=== PATIENT | male | born 1990 | race African-American/Black ===

== ENCOUNTER 2020-09-03 16:19 | Emergency (ER) | payer OTHER ==
[~2020-09-03] VITALS: Ht 172.7 cm; Wt 83.6 kg
[2020-09-03 17:08] LABS: BASO % 0.7 % (0.0-1.0); EOS # 0.2 10^3/uL (0.0-0.5); EOS % 3.4 % (0.0-3.0); HEMATOCRIT 46.4 % (42.0-52.0); HEMOGLOBIN 14.6 g/dl (13.5-17.5); LYMPH # 2.2 10^3/uL (1.5-5.0); MEAN CORPUSCULAR HEMOGLOBIN 23.9 pg (27.0-33.0); MEAN CORPUSCULAR HGB CONC 31.5 g/dl (32.0-36.5); MEAN CORPUSCULAR VOLUME 75.8 fl (80.0-96.0); MONO # 0.3 10^3/uL (0.0-0.8); MONO % 7.4 % (2.0-8.0); NEUTROPHILS # 1.6 10^3/uL (1.5-8.5); NEUTROPHILS % 37.3 % (36.0-66.0); PLATELET COUNT, AUTOMATED 197 10^3/uL (150-450); RED BLOOD COUNT 6.12 10^6/uL (4.30-6.10); WHITE BLOOD COUNT 4.4 10^3/uL (4.0-10.0)
[2020-09-03 17:38] LABS: ALBUMIN 4.4 GM/DL (3.2-5.2); ALT/SGPT 30 U/L (12-78); BILIRUBIN,DIRECT 0.3 MG/DL (0.0-0.2); BILIRUBIN,TOTAL 1.9 MG/DL (0.2-1.0); CK-MB VALUE MASS < 1.0 NG/ML (<3.6); CPK CREATINE PHOSPHOKINASE 218 U/L (39-308); LIPASE 104 U/L (73-393); MB/CK RELATIVE INDEX 0.46 (< OR =4); TROPONIN I < 0.02 NG/ML (< 0.10)
[2020-09-03 19:24] LABS: BLOOD UREA NITROGEN 8 MG/DL (7-18); CALCIUM LEVEL 9.6 MG/DL (8.5-10.1); CARBON DIOXIDE LEVEL 27 MEQ/L (21-32); CHLORIDE LEVEL 105 MEQ/L (98-107); CREATININE FOR GFR 1.34 MG/DL (0.70-1.30); GLOMERULAR FILTRATION RATE > 60.0 (>60); GLUCOSE, FASTING 80 MG/DL (70-100); SODIUM LEVEL 138 MEQ/L (136-145)
[2020-09-03] MEDS ORDERED: GI COCKTAIL 50ML BTL(HYOSCYAMINE/MAALOX/LIDOCAINE VISCOUS)(1:3:1) PO ONE (19:30)
--- NOTE | 2020-09-03 20:00 | REP ---
INDICATION: cp. COMPARISON: No comparison chest x-ray. TECHNIQUE: Two views.. FINDINGS: The lungs are well inflated and free of infiltrate. The pleural angles are sharp. The heart size is normal. Pulmonary vasculature is not increased. No significant bony abnormality is seen. EKG monitoring electrodes are seen overlying the chest. IMPRESSION: Negative chest x-ray. <Electronically signed by Gil Dimas > 09/03/201955
[2020-09-03] MEDS ORDERED: OMEP40CA4 PO (21:56)
[2020-09-03 22:17] VITALS: BP 116/71
--- NOTE | 2020-09-03 22:18 | ECGEPIP ---
[facility] - ED Test Date: 2020-09-03 Pat Name: KAN ANTONIO Department: Room: - Gender: Male Circus Roustabout: JEANNE : 1990 Requested By: Moisés Collazo Order Number: [id number] Reading MD: Luis Alberto Will Measurements Intervals [place] Rate: 58 P: 31 AL: 226 QRS: -2 QRSD: 86 T: 4 QT: 358 QTc: 351 Interpretive Statements Sinus bradycardia with 1st degree AV block Comparison tracing not on file Electronically Signed on 09-03-2020 22:18:42 EDT by Luis Alberto Will
== END 2020-09-03 22:32 | disposition home or self-care (01) ==
LOC: M ED 16:19
DX: K21.9 Gastro-esophageal reflux disease without esophagitis (principal); R07.89 Other chest pain; I44.0 Atrioventricular block, first degree

== ENCOUNTER 2020-11-01 08:27 | Emergency (ER) | payer OTHER ==
[~2020-11-01] VITALS: Ht 175.3 cm; Wt 89.0 kg
[~2020-11-01 08:27] MED LIST: OMEP40CA4 PO
[2020-11-01] MEDS ORDERED: KETOROLAC 30 MG/ML 1ML VIAL IV ONE (09:05)
[2020-11-01 09:08] LABS: BASO % 0.6 % (0.0-1.0); EOS # 0.2 10^3/uL (0.0-0.5); EOS % 5.8 % (0.0-3.0); HEMATOCRIT 48.8 % (42.0-52.0); HEMOGLOBIN 15.4 g/dl (13.5-17.5); LYMPH # 1.1 10^3/uL (1.5-5.0); LYMPH % 31.1 % (24.0-44.0); MEAN CORPUSCULAR HEMOGLOBIN 23.8 pg (27.0-33.0); MEAN CORPUSCULAR HGB CONC 31.6 g/dl (32.0-36.5); MEAN CORPUSCULAR VOLUME 75.5 fl (80.0-96.0); MONO # 0.6 10^3/uL (0.0-0.8); MONO % 16.5 % (2.0-8.0); NEUTROPHILS # 1.7 10^3/uL (1.5-8.5); NEUTROPHILS % 45.7 % (36.0-66.0); PLATELET COUNT, AUTOMATED 178 10^3/uL (150-450); RED BLOOD COUNT 6.46 10^6/uL (4.30-6.10); WHITE BLOOD COUNT 3.6 10^3/uL (4.0-10.0)
--- NOTE | 2020-11-01 09:10 | REP ---
INDICATION: CHEST PAIN. COMPARISON: 09/03/2020 TECHNIQUE: Portable FINDINGS: The technique utilized in obtaining the radiograph has magnified the cardiac silhouette and accentuated the interstitial markings. The superior mediastinal structures are midline. The cardiac silhouette is unremarkable in size, shape, and position. The diaphragmatic surfaces of the lungs are regular, and the costophrenic angles are clear. The pulmonary fonseca are clear. The imaged osseous structures are intact. IMPRESSION: There is no acute cardiopulmonary disease. <Electronically signed by Shade Hagan > 11/01/20 0906
[2020-11-01 09:53] LABS: ERYTHROCYTE SEDIMENTATION RATE 2 mm/hr (0-15)
[2020-11-01] MEDS ORDERED: IBUP-1022 PO (11:13)
[2020-11-01 11:15] VITALS: BP 120/71
--- NOTE | 2020-11-02 05:13 | ECGEPIP ---
[facility] - ED Test Date: 2020-11-01 Pat Name: KAN ANTONIO Department: Room: - Gender: Male Zyglo Technician: : 1990 Requested By: Jaimee Navarro Order Number: [id number] Reading MD: Moisés Diaz Measurements Intervals [place] Rate: 67 P: 53 WV: 210 QRS: -4 QRSD: 86 T: 5 QT: 336 QTc: 355 Interpretive Statements Sinus rhythm with 1st degree AV block NONSPECIFIC T WAVE ABNORMALITY(S) SIMILAR TO 09/03/20 Electronically Signed on 11-02-2020 5:13:26 EDT by Moisés Diaz
== END 2020-11-01 12:00 | disposition home or self-care (01) ==
LOC: M ED 08:27
DX: R07.9 Chest pain, unspecified (principal); R05 Cough
CPT/HCPCS: 71045; 80047; 84484; 85025; 85379; 85652; 93005; 93041; 94760; 96374; 99285; J1885

== ENCOUNTER 2021-01-01 12:40 | Inpatient (IN) | payer OTHER ==
[~2021-01-01] VITALS: Ht 175.3 cm; Wt 85.0 kg
[~2021-01-01 12:40] MED LIST changes: +IBUP-1022 PO
--- OUTSIDE RECORDS SUMMARY | 2021-01-01 12:44 | CCD ---
Author Author [facility] Address Unknown Phone Unavailable Support Name Relationship Address Phone [facility] Next Of Kin [place] [address] Unavailable DONYA [place] [address] Re-disclosure Warning The records that you are about to access may contain information from federally-assisted alcohol or drug abuse programs. If such information is present, then the following federally mandated warning applies: This information has been disclosed to you from records protected by federal confidentiality rules (42 CFR part 2). The federal rules prohibit you from making any further disclosure of this information unless further disclosure is expressly permitted by the written consent of the person to whom it pertains or as otherwise permitted by 42 CFR part 2. A general authorization for the release of medical or other information is NOT sufficient for this purpose. The Federal rules restrict any use of the information to criminally investigate or prosecute any alcohol or drug abuse patient.The records that you are about to access may contain highly sensitive health information, the redisclosure of which is protected by Article 27-F of the [facility] Public Health law. If you continue you may have access to information: Regarding HIV / AIDS; Provided by facilities licensed or operated by the [facility] Office of Mental Health; or Provided by the [facility] Office for People With Developmental Disabilities. If such information is present, then the following [facility] mandated warning applies: This information has been disclosed to you from confidential records which are protected by state law. State law prohibits you from making any further disclosure of this information without the specific written consent of the person to whom it pertains, or as otherwise permitted by law. Any unauthorized further disclosure in violation of state law may result in a fine or fci sentence or both. A general authorization for the release of medical or other information is NOT sufficient authorization for further disc losure. Medications No Information Insurance Providers Payer name Policy type / Coverage type Policy ID Covered green party ID Covered green party's relationship to lawler Policy Lawler Plan Information [facility] ACTIVE DUTY [id number] Problems, Conditions, and Diagnoses No Information Surgeries/Procedures No Information Results ID Date Data Source [id number] 11/07/2020 08:59:00 AM EDT [facility] Name Value Range Interpretation Code Description Data Natalia rce(s) Supporting Document(s) SARS coronavirus 2 RNA Detected [facility] This lab was ordered by [facility] [employer] [facility] and reported by [facility]. ID Date Data Source [id number] 07/11/2020 01:47:00 PM EDT [facility] Name Value Range Interpretation Code Description Data Natalia rce(s) Supporting Document(s) SARS coronavirus 2 RNA Not Detected [facility] This lab was ordered by [facility] [employer] [facility] and reported by [facility]. Procedure Social History No Information
--- OUTSIDE RECORDS SUMMARY | 2021-01-01 13:42 | CCD ---
Author Author [facility] Address Unknown Phone Unavailable Support Name Relationship Address Phone [facility] Next Of Kin [place] [address] Unavailable [place] [address] Re-disclosure Warning The records that you are [...] is protected by Article 27-F of the [facility] Public Health law. If you continue you may have access to information: Regarding HIV / AIDS; Provided by facilities licensed or operated by the [facility] Office of Mental Health; or Provided by the [facility] Office for People With Developmental Disabilities. If such information is present, then the following [facility] mandated warning applies: This information has been [...] law may result in a fine or fdc sentence or both. A general authorization for the release of medical or other information is NOT sufficient authorization for further disc losure. Medications No Information Insurance Providers Payer name Policy type / Coverage type Policy ID Covered democrat ID Covered democrat's relationship to lawler Policy Lawler Plan Information [facility] ACTIVE DUTY [id number] Problems, Conditions, and Diagnoses No Information Surgeries/Procedures No Information Results ID Date Data Source [id number] 11/07/2020 08:59:00 AM EDT [facility] Name Value Range Interpretation Code Description Data Natalia rce(s) Supporting Document(s) SARS coronavirus 2 [facility]ed [facility] This lab was ordered by [facility] [employer] [facility] and reported by [facility]. ID Date Data Source [id number] 07/11/2020 01:47:00 PM EDT [facility] Name Value Range Interpretation Code Description Data Natalia rce(s) Supporting Document(s) SARS coronavirus 2 RNA Not [facility]ed [facility] This lab was ordered by [facility] and reported by [facility]. Procedure Social History No Information
[2021-01-01] MEDS ORDERED: diphenhydrAMINE 50MG CAP PO ONE (16:20)
[2021-01-01 17:05] LABS: HEMATOCRIT 48.9 % (42.0-52.0); HEMOGLOBIN 15.5 g/dl (13.5-17.5); MEAN CORPUSCULAR HGB CONC 31.7 g/dl (32.0-36.5); MEAN CORPUSCULAR VOLUME 75.6 fl (80.0-96.0); PLATELET COUNT, AUTOMATED 183 10^3/uL (150-450); RED BLOOD COUNT 6.47 10^6/uL (4.30-6.10); WHITE BLOOD COUNT 5.2 10^3/uL (4.0-10.0)
[2021-01-01 17:28] LABS: ACETAMINOPHEN LEVEL < 2.0 UG/ML (10.0-30.0); ALBUMIN 4.5 GM/DL (3.2-5.2); ALT/SGPT 30 U/L (12-78); BILIRUBIN,DIRECT 0.3 MG/DL (0.0-0.2); BILIRUBIN,TOTAL 1.5 MG/DL (0.2-1.0); BLOOD UREA NITROGEN 11 MG/DL (7-18); CALCIUM LEVEL 10.1 MG/DL (8.5-10.1); CARBON DIOXIDE LEVEL 28 MEQ/L (21-32); CHLORIDE LEVEL 102 MEQ/L (98-107); CREATININE FOR GFR 1.29 MG/DL (0.70-1.30); ETHYL ALCOHOL (ETHANOL) < 0.003 % (0.000-0.010); GLOMERULAR FILTRATION RATE > 60.0 (>60); GLUCOSE, FASTING 98 MG/DL (70-100); POTASSIUM SERUM 3.7 MEQ/L (3.5-5.1); SALICYLATE LEVEL < 1.7 MG/DL (5.0-30.0); SODIUM LEVEL 138 MEQ/L (136-145); TOTAL PROTEIN 8.3 GM/DL (6.4-8.2)
[2021-01-01 20:14] LABS: AMPHETAMINES LEVEL URINE NEGATIVE (NEGATIVE); BARBITURATES URINE NEGATIVE (NEGATIVE); BENZODIAZEPINES URINE NEGATIVE (NEGATIVE); CANNABINOIDS URINE NEGATIVE (NEGATIVE); COCAINE METABOLITE URINE NEGATIVE (NEGATIVE); METHADONE URINE NEGATIVE (NEGATIVE); OPIATES URINE NEGATIVE (NEGATIVE); PHENCYCLIDINE URINE NEGATIVE (NEGATIVE)
[2021-01-01 21:16] LABS: RSV AMPLIFICATION NEGATIVE (NEGATIVE)
[2021-01-01] MEDS ORDERED: HOME MED LIST COMPLETE! XX SCH (22:20)
[2021-01-01] MEDS ORDERED: traZODone 50 MG TAB PO PRN (22:45)
[2021-01-01] MEDS ORDERED: MAALOX 30 ML SUSP *UDC PO PRN (22:45)
[2021-01-01] MEDS ORDERED: LORazepam 1 MG TAB PO PRN (22:45)
[2021-01-01] MEDS ORDERED: ACETAMINOPHEN TAB 650MG DOSE (2X325MG) PO PRN (22:45)
[2021-01-01] MEDS ORDERED: MOM 30ML SUSPENSION UDC PO PRN (22:45)
--- OUTSIDE RECORDS SUMMARY | 2021-01-01 22:54 | CCD ---
Author Author [facility] Address Unknown Phone Unavailable Support Name Relationship Address Phone [facility] Next [place] [address] Unavailable [place] [address] Re-disclosure Warning The records that you are [...] is protected by Article 27-F of the [facility] Public Health law. If you continue you may have access to information: Regarding HIV / AIDS; Provided by facilities licensed or operated by the [facility] Office of Mental Health; or Provided by the [facility] Office for People With Developmental Disabilities. If such information is present, then the following [facility] mandated warning applies: This information has been [...] law may result in a fine or shelter sentence or both. A general authorization for the release of medical or other information is NOT sufficient authorization for further disc losure. Medications No Information Insurance Providers Payer name Policy type / Coverage type Policy ID Covered constitution party ID Covered constitution party's relationship to lawler Policy Lawler Plan Information [facility] ACTIVE DUTY [id number] Problems, Conditions, and Diagnoses No Information Surgeries/Procedures No Information Results ID Date Data Source [id number] 11/07/2020 08:59:00 AM EDT [facility] Name Value Range Interpretation Code Description Data Natalia rce(s) Supporting Document(s) SARS coronavirus [address] [facility] This lab was ordered by [facility] [employer] [facility] and reported by [facility]. ID Date Data Source [id number] 07/11/2020 01:47:00 PM EDT [facility] Name Value Range Interpretation Code Description Data Natalia rce(s) Supporting Document(s) SARS coronavirus 2 RNA Not [facility]ed [facility] This lab was ordered by [facility] and reported by [facility]. Procedure Social History No Information
--- NOTE | 2021-01-02 10:35 | HPEPDOC ---
[facility] Medical History & Physical Date of Admission Jan 01, 2021 Date of Service: Jan 02, 2021 History and Physical Chief complaint: Who presented to the hospital for suicidal ideation History of present illness: Patient is a 30-year-old male with no significant past medical history who presented to the emergency room brought in by EMS for suicidal ideation. Patient was admitted to the inpatient mental health unit under the care of psychiatry. Hospitalist service was consulted for medical screening evaluation. Patient was seen and examined in his room. He denied any headache, nausea, vomiting, chest pain, shortness of breath, palpitations, cough, abdominal pain, constipation, diarrhea, or urinary discomfort. He denies any recent fevers or chills. Reports that his weight and appetite have been fairly consistent. 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 Review of Systems: 10 point review of systems complete, all negative otherwise stated in HPI Physical exam: - Vitals: BP [112/56], HR [60], RR [16], Sat [99%RA], Temp [97.1F] - General: Lying in bed, Speaking in full sentences, AAOx3 - HEENT: NC, AT, PERRLA - CVS: RRR, +S1S2, - Murmurs / rubs / gallops - Lungs: Fair air entry bilaterally, No appreciable wheezing / rales / rhonchi - Abdomen: Soft, Non-distended, Non-tender - Extremities: No lower extremity edema, No calf tenderness - Neuro: No focal motor or sensory deficit - Skin: No visible rashes Labs: See below Imaging: See below EKG: See below Assessment and Plan: Suicidal ideation - Who presented to the hospital with suicidal ideation - Patient was admitted to the inpatient mental health unit under the care of psychiatry - Currently being managed by psychiatry No significant past medical history DVT prophylaxis - Will c/w early ambulation Female machine or machinery mechanic was present throughout the duration of this history and physical examination Thank you for this consultation. Hospitalist service will now sign off; please reconsult as needed Vital Signs Vital Signs Date Time Temp Pulse Resp B/P (MAP) Pulse Ox O2 Delivery O2 Flow Rate FiO2 01/01/21 19:33 97.1 60 16 112/56 (74) 99 Room Air Laboratory Data Labs 24H Laboratory Tests 2 01/01/21 16:38: Nucleated Red Blood Cells % (auto) 0.0, Anion Gap 8, Glomerular Filtration Rate > 60.0, Calcium Level 10.1, Total Bilirubin 1.5H, Direct Bilirubin 0.3H, Aspartate Amino Transf (AST/SGOT) 25, Alanine Aminotransferase (ALT/SGPT) 30, Alkaline Phosphatase 92, Total Protein 8.3H, Albumin 4.5, Albumin/Globulin Ratio 1.2, Thyroid Stimulating Hormone (TSH) 1.780, Salicylates Level < 1.7L, Acetaminophen Level < 2.0L, Ethyl Alcohol Level < 0.003 01/01/21 19:18: Urine Opiates Screen NEGATIVE, Urine Methadone Screen NEGATIVE, Urine Barbiturates Screen NEGATIVE, Urine Phencyclidine Screen NEGATIVE, Urine Amp hetamines Screen NEGATIVE, Urine Benzodiazepines Screen NEGATIVE, Urine Cocaine Metabolite Screen NEGATIVE, Urine Cannabinoids Screen NEGATIVE 01/01/21 20:28: Coronavirus (COVID-19)(PCR) NEGATIVE, Influenza Type A (RT-PCR) NEGATIVE, Influenza Type B (RT-PCR) NEGATIVE, Respiratory Syncytial Virus (PCR) NEGATIVE CBC/BMP Laboratory Tests 01/01/21 16:38 Home Medications No Active Prescriptions or Reported Meds Allergies Coded Allergies: No Known Drug Allergies (Verified Allergy, Unknown, 09/03/20) IRA MIKE MD Jan 02, 2021 10:35
--- NOTE | 2021-01-02 13:43 | MHHPEPDOC ---
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 This is his first psychiatric hospitalization, he has no past psychiatric history, no reports of past suicidal gestures or attempts. No history of drug or alcohol abuse. The patient states that he came to the [place] when he was 25 years old the winning the lottery in the [employer] giving him a chance to come to the [facility] from the [facility]. He states that he enlisted in the [employer] 3 years ago. He reports many incidences of being bullied and racially harassed during his enlistment. In one episode he states that someone said to him that they had a picture of him and he was handed a picture of a gorilla. 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 He also states that during basic training when other people were getting remediation, he did not ask or receive additional help but he was asked if he was able to read or write. This angered him, as he reports that he would not have been able to enlist without being able to read or write. More recently when he was living in the [facility], his Chain of Command learned that he had they forced him to leave the [facility] without housing. He did not have a car, his was then still living in [place] but he was unable to secure housing within two to three days and they demanded that he remove all his belongings from the [facility]. Eventually a friend with a vehicle was able to help him move off post. He reports being counseled many times but states that many of these sessions were because he did not agree with their reporting of the situation. He was deployed for most of 2019, he states that the deployment was supposed to be 3 months, turned into 6 months, turned into 11 months. He reports that other people had deployment of 1 to 2 months. During his appointment his left him. He went to [place] to try to find her, he was able to speak to her but she had left and did not leave any information about her whereabouts. She eventually did send divorce papers to him, he signed them, he states that he is unaware of where the divorce is at this time. Recently his car had mechanical issues, he could not afford the repair rate and a friend was going to help him fix car. When he told his chain of command that a friend was going to fix his car and that he needed to get tools to his friend's chain of command and asked for the number to speak to this person. They spoke but then the chain of command refused to allow the patient to give the keys and tools to the friend. He states that this was very frustrating for him as he said, "Why asked for my friend's phone number if they were going to not let me give the tools to him?" He reports that much of his frustration, stress, depression comes from his chain of command seemingly trying to make him look incompetent. Patient reporting that he will be able to leave the [employer] in July 2021. PER ED REPORT: Pt presented to [facility] today stating "every day is getting worse and does not know what to do." Pt presented to [facility] on this date stating he did not feel safe. W joy asked if pt could CFS, pt did not respond. Pt states he is under a lot of stress with no support at work or at home. Pt is , but states his stopped all communication with him on his last deployment. Pt's initially had communication then would go 2-6 months with no communication. Pt returned home from deployment to find the home they shared vacant. Pt's left no forwarding information, therefore pt has no idea where she is. Pt also states he joined the , being proud. Pt states he has been racially bullied to the point he is no longer interested in being in the . Pt was due for a promotion, has passed all of his testing, and still denied the promotion. Pt has no support other than at work. Pt states once work is over, he returns home and has no friends or local family. The closest family is pt's mother who resides in [place]. Psychiatric Review of Systems Depression (2 or more weeks): depressed mood, anhedonia, insomnia/hypersomnia, feelings of excess/guilt, difficulty concentrating, suicidal thoughts Maria Eugenia (4 or more days of): denies Psychosis: denies PTSD: history of trauma Anxiety: situational anxiety, stressor related anxiety Past Psychiatric History Previous Psychiatric Diagnosis: None Previous Psychiatric Admissions: None Suicide Attempts: None, suicidal ideations Psychiatric Follow-up: [facility] Psychiatric medications: None, and is declining meds Past Medical History Medical Problems No contributory medical conditions Head Injury: No Seizures: No Hospitalizations: No Surgeries: No Family Medical/Psychiatric HX Medical Problems No contributory conditions Psychiatric Disorders: No Addiction: No Suicide Attemps/Completions: No Addiction History denies Social History Childhood: Born in the [facility]. Has 2 Sisters and 1 Brothers, Did well in school Abuse/Trauma: reports no child abuse, but reports harassment in the [employer] Current Living Situation: Lives alone off post Education: High School Employment: Active Duty Social Support: Limited, reports "none" Legal: None Marital: Still , going through a divorce Mental Status Examination General Appearance: well groomed, appears stated age, hospital scubs/clothing Build: average, other Demeanor: withdrawn, guarded Eye Contact: fair Activity: slowed, anxious Behavior: cooperative Speech: clear, reg/rate,rhythm,volume Mood: depressed Affect: constricted Thought Process: logical/linear Thought Content (Delusions): none reported Thought Content (Other): none reported Thought Content (Aggressive): none reported Perception (Hallucinations): none reported Perception (Other): none reported Cognition (Impairment of): none reported Cognition(Intelligence Est.): average Oriented: Awake, Alert Insight: fair Judgment: Fair Psychosis: Denies Diagnoses Major depressive disorder, single episode, mild Unspecified anxiety disorder Rule out posttraumatic stress disorder A-FIB/CHADSVASC A-FIB History Current/History of A-Fib/PAF?: No Current PO Anticoag Therapy: No Assessment Patient is a 30-year-old, , active duty, male who reports depression, anxiety and suicidal ideations with no planning. He reports a series of stress filled events and numerous episodes of harassment and being bullied in the . Patient reports numerous stressors: 1) car his mechanical problems, 2) sergeant is giving him a hard time about giving him time to take care of the car issues, 3) feels that he is being harassed, 4) depressed over the end of his marriage. Reports that his left him during his deployment and she gave him no recourse and requested a divorce, 5) Limited supports. Patient reports that he was having suicidal ideations 2 weeks ago, but had no planning or intent. He reports no suicidal ideations today, reports depression and anxiety but states that he wants to return to post. Declines medications for depression or anxiety. Patient will be afforded group and individual therapy, medication management if he requests, milieu therapy and safe environment. Patient will be discharged when he is stable and he will follow-up with [facility]. Possible discharge tomorrow. Initial Treatment Plan 1. Patient was admitted on a [9.39] status. 2. Complete history was obtained. 3. With patients permission, family will be contacted and database will be expanded. 4. Patients medication regimen will be reviewed and changed accordingly. 5. Patient will be provided with protected environment. 6. Patient will be treated with individual, group, and milieu therapies. 7. Patient will receive supportive psych-education. 8. Discharge planning will commence immediately. 9. Outpatient follow-up treatment will be strongly recommended. 10. The initial treatment plan will focus initially on: * Depression. * Risk for suicide. ESTIMATED LENGTH OF STAY: 1-3 DAYS. TIME SPENT COUNSELING AND COORDINATING INITIAL CARE: 60 minutes. Tobacco Cessation Screen If Patient is a Smoker Patient is not a smoker N/A-No Antipsychotics Vital Signs Vital Signs Date Time Temp Pulse Resp B/P (MAP) Pulse Ox O2 Delivery O2 Flow Rate FiO2 01/01/21 19:33 97.1 60 16 112/56 (74) 99 Room Air Laboratory Data 24H Labs Laboratory Tests 2 01/01/21 16:38: Nucleated Red Blood Cells % (auto) 0.0, Anion Gap 8, Glomerular Filtration Rate > 60.0, Calcium Level 10.1, Total Bilirubin 1.5H, Direct Bilirubin 0.3H, Aspartate Amino Transf (AST/SGOT) 25, Alanine Aminotransferase (ALT/SGPT) 30, Alkaline Phosphatase 92, Total Protein 8.3H, Albumin 4.5, Albumin/Globulin Ratio 1.2, Thyroid Stimulating Hormone (TSH) 1.780, Salicylates Level < 1.7L, Acetaminophen Level < 2.0L, Ethyl Alcohol Level < 0.003 01/01/21 19:18: Urine Opiates Screen NEGATIVE, Urine Methadone Screen NEGATIVE, Urine Barbiturates Screen NEGATIVE, Urine Phencyclidine Screen NEGATIVE, Urine Amphetamines Screen NEGATIVE, Urine Benzodiazepines Screen NEGATIVE, Urine Cocai ne Metabolite Screen NEGATIVE, Urine Cannabinoids Screen NEGATIVE 01/01/21 20:28: Coronavirus (COVID-19)(PCR) NEGATIVE, Influenza Type A (RT-PCR) NEGATIVE, Influenza Type B (RT-PCR) NEGATIVE, Respiratory Syncytial Virus (PCR) NEGATIVE CBC/BMP Laboratory Tests 01/01/21 16:38 Medications No Active Prescriptions or Reported Meds Allergies Coded Allergies: No Known Drug Allergies (Verified Allergy, Unknown, 09/03/20) MIMI MADDOX NP Jan 02, 2021 11:41
[2021-01-02 17:45] VITALS: BP 130/85
[2021-01-03 06:43] VITALS: BP 112/55
--- NOTE | 2021-01-03 13:44 | MHIPNPDOC ---
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 This is his first psychiatric hospitalization, he has no past psychiatric history, no reports of past suicidal gestures or attempts. No history of drug or alcohol abuse. The patient state s that he came to the [place] when he was 25 years old the winning the lottery in the [facility] giving him a chance to come to the [facility] from the [facility]. He states that he enlisted in the [employer] 3 years ago. He reports many incidences of being bullied and racially harassed during his enlistment. In one episode he states that someone said to him that they had a picture of him and he was handed a picture of a gorilla. 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 He also states that during basic training when other people were getting remediation, he did not ask or receive additional help but he was asked if he was able to read or write. This angered him, as he reports that he would not have been able to enlist without being able to read or write. More recently when he was living in the [facility], his Chain of Command l earned that he had they forced him to leave the [facility] without housing. He did not have a car, his was then still living in [place] but he was unable to secure housing within two to three days and they demanded that he remove all his belongings from the [facility]. Eventually a friend with a vehicle was able to help him move off post. He reports being counseled many times but states that many of these sessions were because he did not agree with their reporting of the situation. He was deployed for most of 2019, he states that the deployment was supposed to be 3 months, turned into 6 months, turned into 11 months. He reports that other people had deployment of 1 to 2 months. During his appointment his left him. He went to [place] to try to find her, he was able to speak to her but she had left and did not leave any information about her whereabouts. She eventually did send divorce papers to him, he signed them, he states that he is unaware of where the divorce is at this time. Recently his car had mechanical issues, he could not afford the repair rate and a friend was going to help him fix car. When he told his chain of command that a friend was going to fix his car and that he needed to get tools to his friend's chain of command and asked for the number to speak to this person. They spoke but then the chain of command refused to allow the patient to give the keys and tools to the friend. He states that this was very frustrating for him as he said, "Why asked for my friend's phone number if they were going to not let me give the tools to him?" He reports that much of his frustration, stress, depression comes from his chain of command seemingly trying to make him look incompetent. Patient reporting that he will be able to leave the [employer] in July 2021. VITAL SIGNS: See below. NEW TEST RESULTS: none CURRENT MEDICATIONS: See below. 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 Speech: Is fluid, conversant, normal rate, tone and volume Language skills are intact Thought processes including: linear and goal oriented Thought content: denies depression and anxiety. Denies suicidal/homicidal ideation, planning or intent. Abstract reasoning, and computation: fair Description of associations: denies, none observed Description of abnormal or psychotic thoughts: denies, none observed. Judgment: fair Insight: fair Orientation: alert and oriented to person, place, time and situation Recent and remote memory: intact Attention span and concentration: good Language: expansive Fund of knowledge: average Mood: Euthymic Mood Affect: reactive DIAGNOSES: Major depressive disorder, single episode, mild Unspecified anxiety disorder Rule out posttraumatic stress disorder ASSESSMENT: Pt. found in his room. Complains of right ankle pain. States pain is from aggravated physical fitness. Patient appears depressed but denies this. He has a very flat affect. Denies suicidality he is isolative and withdrawn to his room. He requested to be discharged today. " My problems will not be any better if I stay for 1 month or stay here for 1 day." Provider feels 1 more day of observation is necessary due to staff report that the patient appears to be depressed. Patient is agreeable to staying until tomorrow. MANAGEMENT PLAN: Continue supportive therapy. Discharge tomorrow. TIME SPENT: 25 minutes. Vital Signs Vital Signs Date Time Temp Pulse Resp B/P (MAP) Pulse Ox O2 Delivery O2 Flow Rate FiO2 01/03/21 06:43 98.8 60 16 112/55 (74) 100 Room Air Current Medications Current Medications Medications (Trade) Dose Ordered Sig/Jose Antonio Route PRN Reason Start Time Stop Time Status Last Admin Dose Admin Acetaminophen (Tylenol Tab) 650 mg Q6HP PRN PO HEADACHE or MILD DISCOMFORT 01/01/21 22:45 Al Hydrox/Mg Hydrox/Simethicone (Mylanta) 30 ml Q4HP PRN PO HEARTBURN/INDIGESTION 01/01/21 22:45 Home Med (Home Med List Complete!) ASDIRECTED XX 01/01/21 22:20 01/01/21 22:19 DC Lorazepam (Ativan) 1 mg BID PRN PO ANXIETY/AGITATION 01/01/21 22:45 Magnesium Hydroxide (Milk Of Magnesia) 30 ml DAILYPRN PRN PO CONSTIPATION 01/01/21 22:45 Trazodone HCl (Desyrel) 50 mg QHSP PRN PO INSOMNIA 01/01/21 22:45 Allergies Coded Allergies: No Known Drug Allergies (Verified Allergy, Unknown, 09/03/20) MIMI MADDOX NP Jan 03, 2021 13:44
[2021-01-03 17:25] VITALS: BP 125/63
[2021-01-03] MEDS ORDERED: diphenhydrAMINE 50MG CAP PO ONE (23:40)
[2021-01-04 06:34] VITALS: BP 134/77
--- NOTE | 2021-01-04 09:55 | MHDSPDOC ---
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 This is his first psychiatric hospitalization, he has no past psychiatric history, no reports of past suicidal gestures or attempts. No history of drug or alcohol abuse. The patient states that he came to the [place] when he was 25 years old the winning the lottery in the [employer] giving him a chance to come to the [facility] from the [facility]. He states that he enlisted in the [employer] 3 years ago. He reports many incidences of being bullied and racially harassed during his enlistment. In one episode he states that someone said to him that they had a picture of him and he was handed a picture of a gorilla. 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 He also states that during basic training when other people were getting remediation, he did not ask or receive additional help but he was asked if he was able to read or write. This angered him, as he reports that he would not have been able to enlist without being able to read or write. More recently when he was living in the [facility], his Chain of Command learned that he had they forced him to leave the [facility] without housing. He did not have a car, his was then still living in [place] but he was unable to secure housing within two to three days and they demanded that he remove all his belongings from the [facility]. Eventually a friend with a vehicle was able to help him move off post. He reports being counseled many times but states that many of these sessions were because he did not agree with their reporting of the situation. He was deployed for most of 2019, he states that the deployment was supposed to be 3 months, turned into 6 months, turned into 11 months. He reports that other people had deployment of 1 to 2 months. During his appointment his left him. He went to [place] to try to find her, he was able to speak to her but she had left and did not leave any information about her whereabouts. She eventually did send divorce papers to him, he signed them, he states that he is unaware of where the divorce is at this time. Recently his car had mechanical issues, he could not afford the repair rate and a friend was going to help him fix car. When he told his chain of command that a friend was going to fix his car and that he needed to get tools to his friend's chain of command and asked for the number to speak to this person. They spoke but then the chain of command refused to allow the patient to give the keys and tools to the friend. He states that this was very frustrating for him as he said, "Why asked for my friend's phone number if they were going to not let me give the tools to him?" He reports that much of his frustration, stress, depression comes from his chain of command seemingly trying to make him look incompetent. Patient reporting that he will be able to leave the [employer] in July 2021. VITAL SIGNS: See below. CONSULTANTS INVOLVED: See Medical H + P by Hospitalist TREATMENT AND PROGRESS ON THE UNIT: Patient was admitted to the [facility] on a 9.39 legal status was afforded the following treatment modalities: 1) Individual Therapy 2) Group Therapy 3) Medication Management 4) Milieu Therapy 5) Safe Environment HOSPITAL COURSE: Patient was admitted to [facility] on a 9.39 legal status. He was admitted for depression, anxiety, suicidal ideations although he reports that he did not have any suicidal ideations upon initial interview. Patient declined al l medications. He was very isolative and withdrawn to his room, patient demonstrated avoidant personality traits, perhaps it was a language barrier. Patient speaks fluent Tunisian has a noticeable accent but this does not make it impossible to understand him. He was encouraged to go to groups but it appears that he has not attended any. His mood, anxiety, and reported suicidal thoughts improved with inpatient admission. Pts symptoms improved with treatment. On day of discharge pt. denied depression, anxiety, insomnia, SI/HI, hallucinations, delusions. Pt was discharged home with follow-up at [facility]. Pt felt safe for discharge. DISCHARGE ASSESSMENT: In today's interview, patient is alert and oriented, pt.s dress is appropriate. Hygiene and grooming is well-kempt. Smiles on approach and is pleasant and engaged in the interview. Denies depression and anxiety. Denies suicidal and homicidal ideation, planning or intent. Denies and is not observed with clovis, psychotic symptoms of delusions, bizarre thinking, obsessions, paranoia, ruminations illogical thoughts, flight of ideas or having poor insight and judgement. Reinforced with patient need to abstain from alcohol and drugs. At discharge patient has normal mentation, declines further hospitalization on a voluntary status and meets criteria for discharge today. Discussed indications of medications, potential benefits and risks, alternatives (including no treatment) and questions were encouraged and answered. Patient encouraged to return to hospital if symptoms worsen or change and encouraged to call unit if he/she/they needs to speak to provider for questions regarding medications or care. 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 Speech: Is slow rate, low tone and volume Language skills are intact Thought processes including: linear and goal oriented Thought content: denies depression and anxiety. Denies suicidal/homicidal ideation, planning or intent. Abstract reasoning, and computation: fair Description of associations: denies, none observed Description of abnormal or psychotic thoughts: denies, none observed. Judgment: fair Insight: fair Orientation: alert and oriented to person, place, time and situation Recent and remote memory: intact Attention span and concentration: good Language: expansive Fund of knowledge: average Mood: Euthymic Mood Affect: reactive Suicide Risk Assessment: 1) Does the patient wish to be ? No 2) Since your admission, have you had any actual thought of killing yourself? No 3) Since your admission, have you been thinking about how you might do this? No 4) Since your admission, have you had these thoughts and had some intention of acting on them? No 5) Since your admission, have you started to work out or worked out the detail s of how to kill yourself? No 5A) Do you intent to carry out this plan? No and NA 6) Have you ever done anything, started anything, or prepared to do anything with any intent to ? No 6A) How long since your admission did you do any of these? NA MEDICATIONS ON DISCHARGE: See Medication Reconciliation PLAN/FOLLOWUP ARRANGEMENTS: [facility] * Medical Follow Up [facility] * Established With This Provider Yes * Therapist * Date Jan 14, 2021 * Time 11:00 * Address of Clinic or Practice [id number] , [place] [address] * The amount of time spent in the coordination of care for this patient was approximately 25 minutes. ETOH/Disorder Med Rx ETOH/DRUG DISORDER RX: N/A Vital Signs/I&Os Vital Signs Date Time Temp Pulse Resp B/P (MAP) Pulse Ox O2 Delivery O2 Flow Rate FiO2 01/04/21 06:34 98.3 59 12 134/77 (96) 98 Room Air Medications No Active Prescriptions or Reported Meds Allergies Coded Allergies: No Known Drug Allergies (Verified Allergy, Unknown, 09/03/20) MIMI MADDOX [employer] INST[employer]ER Jan 04, 2021 09:55
== END 2021-01-04 13:02 | disposition home or self-care (01) | DRG 885 ==
LOC: M ED 12:40 → M ED INP 22:42 → M PSY 01-02 00:15
PROVIDERS: ADMIT Psychiatry & Neurology Psychiatry; ATTEND Psychiatry & Neurology Psychiatry
DX: F32.0 Major depressive disorder, single episode, mild (principal); R45.851 Suicidal ideations; F41.9 Anxiety disorder, unspecified; Z20.822 Contact with and (suspected) exposure to COVID-19; Z56.5 Uncongenial work environment

== ENCOUNTER 2021-01-08 07:05 | Emergency (ER) | payer OTHER ==
[~2021-01-08] VITALS: Ht 175.3 cm; Wt 87.8 kg
[2021-01-08 07:05] VITALS: BP 135/74
[2021-01-08] MEDS ORDERED: BENA25CA4 PO (07:11)
[2021-01-08] MEDS ORDERED: HYDR1CRE30 TOP (07:11)
[2021-01-08] MEDS ORDERED: hydrOXYzine 10 MG TAB PO STA (09:09)
[2021-01-08] MEDS ORDERED: diphenhydrAMINE 50MG/ML VIAL (J1200) IM ONE (09:10)
[2021-01-08] MEDS ORDERED: VIST25CA PO (10:04)
== END 2021-01-08 10:16 | disposition home or self-care (01) ==
LOC: M ED 07:05
DX: L29.9 Pruritus, unspecified (principal); F32.89 Other specified depressive episodes; Z86.16 Personal history of COVID-19
CPT/HCPCS: 96372; 99282; J1200

== ENCOUNTER 2021-02-13 11:25 | Emergency (ER) | payer OTHER ==
[~2021-02-13] VITALS: Ht 175.3 cm; Wt 83.2 kg
[~2021-02-13 11:25] MED LIST changes: +BENA25CA4 PO; +HYDR1CRE30 TOP; +VIST25CA PO
[2021-02-13] MEDS ORDERED: CETI5TAB2 PO (11:40)
[2021-02-13] MEDS ORDERED: IBUP200C28 PO (11:40)
[2021-02-13] MEDS ORDERED: ONDANSETRON 4MG/2ML VIAL IV ONE (17:45)
--- NOTE | 2021-02-13 18:10 | REPVR ---
PROCEDURE INFORMATION: Exam: CT Head Without Contrast Exam date and time: 02/13/2021 5:54 PM Age: 31 years old Clinical indication: Pain; Headache; Additional info: Persistent headache TECHNIQUE: Imaging protocol: Computed tomography of the head without contrast. Radiation optimization: All CT scans at this facility use at least one of these dose optimization techniques: automated exposure control; mA and/or kV adjustment per patient size (includes targeted exams where dose is matched to clinical indication); or iterative reconstruction. COMPARISON: No relevant prior studies available. FINDINGS: Brain: Normal. No hemorrhage. Unremarkable white matter. No mass effect. Cerebral ventricles: No ventriculomegaly. Paranasal sinuses: Visualized sinuses are unremarkable. No fluid levels. Mastoid air cells: Visualized mastoid air cells are well aerated. Bones/joints: Unremarkable. No acute fracture. Soft tissues: Unremarkable. IMPRESSION: No acute intracranial abnormality. Electronically signed by: Stevenson Guillen On 02/13/2021 18:09:59 PM
[2021-02-13] MEDS ORDERED: NS 1,000 ML IV ONE (18:20)
[2021-02-13 18:23] LABS: BASO % 0.2 % (0.0-1.0); EOS # 0.2 10^3/uL (0.0-0.5); EOS % 4.3 % (0.0-3.0); HEMATOCRIT 47.2 % (42.0-52.0); LYMPH % 45.8 % (24.0-44.0); MEAN CORPUSCULAR HGB CONC 31.8 g/dl (32.0-36.5); MEAN CORPUSCULAR VOLUME 75.4 fl (80.0-96.0); MONO # 0.4 10^3/uL (0.0-0.8); MONO % 9.8 % (2.0-8.0); NEUTROPHILS # 1.7 10^3/uL (1.5-8.5); NEUTROPHILS % 39.7 % (36.0-66.0); PLATELET COUNT, AUTOMATED 187 10^3/uL (150-450); RED BLOOD COUNT 6.26 10^6/uL (4.30-6.10); WHITE BLOOD COUNT 4.4 10^3/uL (4.0-10.0)
[2021-02-13 18:51] LABS: ALBUMIN 4.2 GM/DL (3.2-5.2); ALT/SGPT 31 U/L (12-78); BILIRUBIN,TOTAL 1.1 MG/DL (0.2-1.0); BLOOD UREA NITROGEN 13 MG/DL (7-18); CALCIUM LEVEL 9.4 MG/DL (8.5-10.1); CARBON DIOXIDE LEVEL 27 MEQ/L (21-32); CHLORIDE LEVEL 109 MEQ/L (98-107); CREATININE FOR GFR 1.22 MG/DL (0.70-1.30); GLOMERULAR FILTRATION RATE > 60.0 (>60); GLUCOSE, FASTING 88 MG/DL (70-100); POTASSIUM SERUM 4.2 MEQ/L (3.5-5.1); SODIUM LEVEL 142 MEQ/L (136-145); TOTAL PROTEIN 7.8 GM/DL (6.4-8.2)
[2021-02-13 18:54] LABS: ERYTHROCYTE SEDIMENTATION RATE 1 mm/hr (0-15)
[2021-02-13] MEDS ORDERED: KETOROLAC 30 MG/ML 1ML VIAL IV ONE (19:10)
[2021-02-13] MEDS ORDERED: PROHANCE 279.3MG/ML 15ML VIAL As Ordered ONE (21:36)
[2021-02-13] MEDS ORDERED: PROHANCE 279.3MG/ML 5ML VIAL As Ordered ONE (21:37)
--- NOTE | 2021-02-13 22:22 | REPVR ---
PROCEDURE INFORMATION: Exam: MR Head Without and With Contrast Exam date and time: 02/13/2021 9:30 PM Age: 31 years old Clinical indication: Pain; Visual disturbance; Headache not specified; Additional info: HOLT 6 weeks blurred, double vision TECHNIQUE: Imaging protocol: MR of the head without and with intravenous contrast. Contrast material: PROHANCE; Contrast volume: 16 ml; Contrast route: INTRAVENOUS (IV); COMPARISON: CT Head without contrast 02/13/2021 5:48 PM FINDINGS: Brain: Normal. No acute infarct. No hemorrhage. No significant white matter disease. No edema. Cerebral ventricles: Normal. No ventriculomegaly. Bones/joints: Unremarkable. Paranasal sinuses: Normal as visualized. No acute sinusitis. Mastoid air cells: Normal as visualized. No mastoid effusion. Orbital cavity: Unremarkable. Soft tissues: Unremarkable. IMPRESSION: No acute findings. Electronically signed by: Stevenson Guillen On 02/13/2021 22:22:19 PM
--- NOTE | 2021-02-13 22:25 | REPVR ---
PROCEDURE INFORMATION: Exam: MRA Head Without Contrast; Arteriography Exam date and time: 02/13/2021 9:30 PM Age: 31 years old Clinical indication: Pain; Visual disturbance; Diplopia; Headache; Additional info: HOLT 6 weeks blurred, double vision TECHNIQUE: Imaging protocol: Magnetic resonance angiography head without contrast. Exam focused on the arteries. COMPARISON: CT Head without contrast 02/13/2021 5:48 PM FINDINGS: ANTERIOR CIRCULATION: Right internal carotid artery: Intracranial segment is patent with no significant stenosis. No aneurysm. Right middle cerebral artery: No occlusion or significant stenosis. No aneurysm. Right anterior cerebral artery: No occlusion or significant stenosis. No aneurysm. Left internal carotid artery: Intracranial segment is patent with no significant stenosis. No aneurysm. Left middle cerebral artery: No occlusion or significant stenosis. No aneurysm. Left anterior cerebral artery: No occlusion or significant stenosis. No aneurysm. POSTERIOR CIRCULATION: Right vertebral artery: Right vertebral artery unremarkable. Left vertebral artery: Nonvisualized left vertebral artery. Basilar artery: No occlusion or significant stenosis. No aneurysm. Right posterior cerebral artery: No occlusion or significant stenosis. No aneurysm. Left posterior cerebral artery: No occlusion or significant stenosis. No aneurysm. IMPRESSION: 1. Nonvisualized left vertebral artery which may be occluded proximally. 2. Otherwise unremarkable. Electronically signed by: Stevenson Guillen On 02/13/2021 22:25:12 PM
[2021-02-13] MEDS ORDERED: PRED20TA PO (23:09)
[2021-02-13] MEDS ORDERED: NORT25CA2 PO (23:09)
[2021-02-13 23:10] VITALS: BP 121/76
== END 2021-02-13 23:20 | disposition home or self-care (01) ==
LOC: M ED 11:25
DX: G43.909 Migraine, unspecified, not intractable, without status migrainosus (principal); F33.9 Major depressive disorder, recurrent, unspecified; Z79.899 Other long term (current) drug therapy
CPT/HCPCS: 70450; 70544; 70553; 80053; 85025; 85652; 86140; 96361; 96374; 96375; 99284; A9576; J1885; J2405

== ENCOUNTER 2021-02-24 14:30 | Inpatient (IN) | payer OTHER ==
[~2021-02-24] VITALS: Ht 172.7 cm; Wt 83.2 kg
[~2021-02-24 14:30] MED LIST changes: +CETI5TAB2 PO; +IBUP200C28 PO; +NORT25CA2 PO; +PRED20TA PO
[2021-02-24] MEDS ORDERED: METOCLOPRAMIDE INJ 10MG/2ML VIAL (J2765 PER 1) IV ONE (17:00)
[2021-02-24] MEDS ORDERED: KETOROLAC 30 MG/ML 1ML VIAL IV ONE (17:00)
[2021-02-24 19:12] LABS: HEMATOCRIT 44.7 % (42.0-52.0); HEMOGLOBIN 14.3 g/dl (13.5-17.5); MEAN CORPUSCULAR VOLUME 74.9 fl (80.0-96.0); PLATELET COUNT, AUTOMATED 167 10^3/uL (150-450); RED BLOOD COUNT 5.97 10^6/uL (4.30-6.10); WHITE BLOOD COUNT 5.6 10^3/uL (4.0-10.0)
[2021-02-24 19:42] LABS: RSV AMPLIFICATION NEGATIVE (NEGATIVE)
[2021-02-24 19:43] LABS: ACETAMINOPHEN LEVEL < 2.0 UG/ML (10.0-30.0); ALBUMIN 3.9 GM/DL (3.2-5.2); ALT/SGPT 26 U/L (12-78); BILIRUBIN,DIRECT 0.2 MG/DL (0.0-0.2); BILIRUBIN,TOTAL 0.6 MG/DL (0.2-1.0); BLOOD UREA NITROGEN 14 MG/DL (7-18); CALCIUM LEVEL 9.1 MG/DL (8.5-10.1); CARBON DIOXIDE LEVEL 26 MEQ/L (21-32); CHLORIDE LEVEL 107 MEQ/L (98-107); ETHYL ALCOHOL (ETHANOL) < 0.003 % (0.000-0.010); GLOMERULAR FILTRATION RATE > 60.0 (>60); GLUCOSE, FASTING 79 MG/DL (70-100); POTASSIUM SERUM 4.1 MEQ/L (3.5-5.1); SALICYLATE LEVEL < 1.7 MG/DL (5.0-30.0); SODIUM LEVEL 139 MEQ/L (136-145); TOTAL PROTEIN 7.3 GM/DL (6.4-8.2)
[2021-02-24] MEDS ORDERED: HYDR1CAP25 PO (20:31)
[2021-02-24] MEDS ORDERED: HOME MED LIST COMPLETE! XX SCH (20:35)
[2021-02-25 18:51] LABS: AMPHETAMINES LEVEL URINE NEGATIVE (NEGATIVE); BARBITURATES URINE NEGATIVE (NEGATIVE); BENZODIAZEPINES URINE NEGATIVE (NEGATIVE); CANNABINOIDS URINE NEGATIVE (NEGATIVE); COCAINE METABOLITE URINE NEGATIVE (NEGATIVE); METHADONE URINE NEGATIVE (NEGATIVE); OPIATES URINE NEGATIVE (NEGATIVE); PHENCYCLIDINE URINE NEGATIVE (NEGATIVE)
[2021-02-25] MEDS ORDERED: MOM 30ML SUSPENSION UDC PO PRN (20:00)
[2021-02-25] MEDS ORDERED: traZODone 50 MG TAB PO PRN (20:00)
[2021-02-25] MEDS ORDERED: CETIRIZINE (ZyrTEC) 5 MG/5 ML UDC DYE FREE PO PRN (20:00)
[2021-02-25] MEDS ORDERED: IBUPROFEN 400MG TAB PO PRN (20:00)
[2021-02-25] MEDS ORDERED: ACETAMINOPHEN TAB 650MG DOSE (2X325MG) PO PRN (20:00)
[2021-02-25] MEDS ORDERED: MAALOX 30 ML SUSP *UDC PO PRN (20:00)
[2021-02-25] MEDS ORDERED: PILL CUTTER 1 EACH XX PRN (20:20)
[2021-02-25] MEDS ORDERED: CETIRIZINE (ZyrTEC) 10 MG TAB PO PRN ×2 (20:20→20:40)
[2021-02-25] MEDS ORDERED: NORTRIPTYLINE 25 MG CAP PO SCH (21:00)
[2021-02-25] MEDS: hydrOXYzine 25 MG TAB PO SCH (21:03)
[2021-02-25 21:30] VITALS: BP 150/84
[2021-02-26 06:45] VITALS: BP 160/90
[2021-02-26] MEDS: hydrOXYzine 25 MG TAB PO SCH (09:58)
== END 2021-02-26 13:32 | disposition home or self-care (01) | DRG 881 ==
LOC: M ED 14:30 → M ED INP 02-25 19:57 → M PSY 02-25 20:40
PROVIDERS: ADMIT Psychiatry & Neurology Psychiatry; ATTEND Psychiatry & Neurology Psychiatry
DX: F43.21 Adjustment disorder with depressed mood (principal); F41.9 Anxiety disorder, unspecified; R51.9 Headache, unspecified; Z79.899 Other long term (current) drug therapy; Z63.0 Problems in relationship with spouse or partner

== ENCOUNTER → 2021-02-28 | Outpatient (CLI) | payer OTHER ==
[~2021-02-28] MED LIST changes: +HYDR1CAP25 PO
== END ==
LOC: M LABSMTC 10:38
PROVIDERS: ATTEND Pediatrics
DX: Z20.822 Contact with and (suspected) exposure to COVID-19 (principal)